=== PATIENT | female | born 1945 | race Caucasian/White ===

== ENCOUNTER 2023-03-15 07:15 | Outpatient (REF) | payer MEDICARE, SELFPAY ==
[2023-03-15 06:31] LABS: PLT CLUMP 1
[2023-03-15 06:53] LABS: WBC ABN SCTR FOR CBC 1
== END 2023-03-15 07:16 | disposition home or self-care (01) ==
LOC: HO.MMNH1L 07:15
PROVIDERS: Visit Provider Family Medicine
DX: J18.9 Pneumonia, unspecified organism (principal)
CPT/HCPCS: 36415; 80048; 85007; 85025; 85027